=== PATIENT | female | born 1970 | race Caucasian/White ===

== ENCOUNTER 2023-01-26 19:47 | Emergency (ER) | payer OTHER, SELFPAY ==
--- NOTE | ~2023-01-26 | XR_ITS ---
EXAMINATION: XR FINGER, RIGHT CLINICAL INFORMATION: Dog bite to index finger. COMPARISON: 3 views TECHNIQUE: 3 views of the right index finger. . FINDINGS: There is no fracture, dislocation or bony abnormality. Joint spaces are maintained normal. There is soft tissue abrasion mid phalanx second digit but no visible radiopaque foreign body or fracture. XR/XR finger RT min 2V IMPRESSION: Soft tissue abrasion mid phalanx second digit but no visible fracture or radiopaque foreign body seen.
[2023-01-26 21:02] VITALS: BP 139/91; PULSE 100; RESP 19; TEMP 36.7; O2SAT 97; BMI 25.1
--- NOTE | 2023-01-26 21:02 | ED_ITS ---
HPI - Extremity Problem General Chief complaint: Animal Bite Stated complaint: animal bite/laceration on dog Time Seen by Provider: 01/26/23 22:58 Source: patient and family Mode of arrival: ambulatory Limitations: no limitations History of Present Illness HPI Narrative: 52 yo female with no hx of diabetes here today after trying to break up a dog bite and her dogs mouth accidentally got her R index finger and middle finger. Dog is UTD on shots Patient is unsure of her Tdap. MD Complaint: extremity pain Onset (ago): minute(s) (prior to arrival ) Pain Consistency: constant Location: right and upper extremity Quality: aching Radiation: none Relieving factors: immobilization Exacerbating factors: palpation Associated symptoms: denies other symptoms Context: other (dog bite) Related Data Previous Rx's Medication Instructions Recorded amoxicillin 875 mg-potassium 1 tab PO BID #10 tabs 01/26/23 clavulanate 125 mg tablet fluconazole 150 mg tablet 150 mg PO DAILY 2 doses #2 tabs 01/26/23 Allergies Allergy/AdvReac Type Severity Reaction Status Date / Time No Known Allergies Allergy Verified 01/26/23 21:00 Review of Systems Review of Systems: Constitutional : No Fever, No Chills, Cardiovascular : No Chest Pain, No SOB Respiratory : No Dyspnea Gastrointestinal : No abdominal pain Musculoskeletal : No Joint Swelling Skin : No rash, positive skin laceration Neuro : No Weakness, No Numbness PMFSH Past Medical History Attestation statement: The following information was validated with the patient. Medical History Arthritis Social History Social History (Updated 01/27/23 @ 00:11 by Yolanda Aviles DO) Patient Tobacco Use Status: Tobacco use Unknown Physical Exam Vital Signs: Vital Signs: Last Vital Signs Temp 98.1 F 01/26/23 21:02 Pulse 100 01/26/23 21:02 Resp 19 01/26/23 21:02 BP 139/91 H 01/26/23 21:02 Pulse Ox 97 01/26/23 21:02 O2 Del Method Room Air 01/26/23 21:02 BMI result Body Mass Index 25.1 Appearance: Alert. Oriented X3. No acute distress. Eyes: Pupils equal, round and reactive to light. ENT: Pharynx normal. Neck: Normal inspection. Neck supple. CVS: Normal heart rate and rhythm. Pulses normal. Respiratory: No respiratory distress. Breath sounds normal. Abdomen: Soft and nontender. Skin: Skin warm and dry. Normal skin color. Normal skin turgor. Extremities: No lower extremity edema. R index finger is swollen she is NV can range finger but it is painful - has abrasion superficial on 1st PIP on prox phalanx there is extending 2cm open laceration down to sub no tendon involved Neuro: Oriented X 3. No motor deficit. No sensory deficit. Course Course Course Narrative: Patient complains of dog bite to the right index finger when she was breaking up a dog bite, the bite was from her own dog and her own dog is up-to-date on all rabies shots X-ray of right index finger is ordered This rapid medical exam in triage pending full evaluation in the ER Medications Administered Discontinued Medications Generic Name Dose Route Start Last Admin Trade Name Freq PRN Reason Stop Dose Admin Amoxicillin/Clavulanate Potassium 875 mg 01/26/23 22:57 01/26/23 23:51 Amoxicillin/Potassium Clav 875 Mg Tablet PO 01/26/23 22:58 875 mg ONCE ONE Administration Diphtheria/Tetanus/Acell Pertussis 0.5 ml 01/26/23 22:57 01/26/23 23:51 Diphth,Pertus(Acell),Tet Adult 0.5 Ml Syringe IM 01/26/23 22:58 0.5 ml .ONCE ONE Administration Lidocaine HCl 5 ml 01/26/23 23:14 01/26/23 23:52 Lidocaine Hcl 1 % Mpf 5 Ml Vial SUBCUT 01/26/23 23:15 5 ml ONCE ONE Administration Medical Decision Making Medical Decision Making [facility] Narrative: 52 yo female with R hand abrasions and laceration that is large enough and deep enough on finger that will require loose approximation of skin - xray for fracture ordered, tdap, dog is UTD, augmentin ordered, strict precautions to return, no signs of deeper injury at this time Differential Diagnosis Differential Diagnoses: The differential diagnosis associated with the presentation includes laceration, crush injury Independent Interpretation I performed an independent interpretation of an: Plain X-Ray (no fracture) Radiology Impression Discussion of test interpretation with radiology: I have reviewed the radiologist's reading. Independent Historian Clinical information obtained from an independent historian. History obtained from or confirmed by: Other (sister) Prescription Management I considered prescription management with: Antibiotic Procedures Laceration Laceration 1: Site: other (right index finger) Side (If applicable): right Size (cm): 2 Description: irregular Depth: simple, single layer Local Anesthetic: lidocaine 1% Amount of anesthesia used (mL): 1 Pre-repair: wound explored, irrigated extensively and deep structures intact Skin layer closed with: vicryl Size (cm): 4-0 Number of sutures: 2 Technique: simple, interrupted Discharge Plan Discharge Clinical Impression: Dog bite Qualifiers: Encounter type: initial encounter Qualified Code(s): W54.0XXA - Bitten by dog, initial encounter Finger laceration Qualifiers: Encounter type: initial encounter Finger: index finger Damage to nail status: without damage Foreign body presence: without foreign body Laterality: right Qualified Code(s): S61.210A - Laceration without foreign body of right index finger without damage to nail, initial encounter Patient Disposition: Home, Self-Care Instructions: Animal Bite (ED), Finger Laceration (ED) Additional Instructions: sutures out in 7 days - monitor very closely - redness, worsening swelling, yellow drainage can get wet in shower in 24 hours but otherwise not OKAY to get wet. On amoxicillin-clavulanate, softer bowel movements are to be expected. Call your provider if you move your bowels more than 4 times a day, your bowel movements are almost all liquid, or you get a rash.? Prescriptions: New amoxicillin-pot clavulanate 875-125 mg tablet 1 tab PO BID Qty: 10 0RF fluconazole 150 mg tablet 150 mg PO DAILY Qty: 2 0RF Rx Instructions: administer on day 1 of therapy, repeat in 72 hours if not better Stand Alone Forms: Work/School Release
[2023-01-26] MEDS: Diphth,Pertus(ACell),Tet Adult 0.5 ML SYRINGE IM (23:51)
[2023-01-26] MEDS: Amoxicillin/Potassium Clav 875 MG TABLET PO (23:51)
[2023-01-26] MEDS: Lidocaine HCl 1 % MPF 5 ML VIAL SUBCUT (23:52)
== END 2023-01-27 00:20 | disposition home or self-care (01) ==
PROVIDERS: Emergency Provider Emergency Medicine; PCP Internal Medicine
DX: S61.210A Laceration without foreign body of right index finger without damage to nail, initial encounter (principal); W54.0XXA Bitten by dog, initial encounter; Y93.89 Activity, other specified; Y92.9 Unspecified place or not applicable; Y99.9 Unspecified external cause status
CPT/HCPCS: 12001; 73140; 90471; 90715; 99282; 99284